=== PATIENT | male | born 1950 | race African-American/Black ===

== ENCOUNTER 2018-11-02 14:05 | Inpatient (IN) | payer MEDICARE, OTHER ==
[~2018-11-02] VITALS: Ht 182.9 cm; Wt 98.8 kg
[2018-11-02] MEDS ORDERED: ALTEPLASE 1 MG/ML ONE (14:07)
--- NOTE | 2018-11-02 14:10 | NUR ---
Onset of symptoms (LUE/LLE/slurred speech) at 1330 EMS alert pre-hospital stroke alert at 1350 Pre-hospital FSBS 97, 98f, 132/80, 65, 15 100% Arrived at 1404 Weight obtained via bedscale at 1405 109[address] scan at 1406 Patient noted to moving left arm/leg at 1407 CT head w/o: 1410 CTA head/neck 1417 Labs draw by EMS at 1400-sent at 1431 (delay as patient labels unavailable) Neurologist responded via phone at 1433 (Dr. Gomes), paged at 1350 & 1421
--- NOTE | 2018-11-02 14:15 | NUR ---
THIS RN BACK FROM LUNCH BREAK. ASSUMED CARE OF PATIENT FROM [facility] IN CT DEPARTMENT.
--- NOTE | 2018-11-02 14:24 | NUR ---
PG CODE NEURO @[id number] PG NEURO @[id number]
[2018-11-02] MEDS ORDERED: OMNIPAQUE 350 MG/ML, 100ML BOTTLE ONE (14:33)
--- NOTE | 2018-11-02 14:33 | NUR ---
Dr. nicole paged overhead throughout entire hospital at 1332 yet to eval patient
[2018-11-02 14:38] LABS: BASOPHILS # (AUTO) 0.04 x10^3/uL (0-0.1); BASOPHILS % (AUTO) 1 % (0-1); EOSINOPHILS # (AUTO) 0.06 x10^3/uL (0-0.4); EOSINOPHILS % (AUTO) 2 % (1-7); LYMPHOCYTES # (AUTO) 1.55 x10^3/uL (1-3.4); LYMPHOCYTES % (AUTO) 37 % (22-44); MD NO; MEAN CORPUSCULAR HEMOGLOBIN 30.6 pg (27.5-34.5); MEAN CORPUSCULAR HGB CONC 32.8 g/dL (33.2-36.2); MEAN CORPUSCULAR VOLUME 93.3 fL (81-97); MEAN PLATELET VOLUME 9.5 fL (7.4-10.4); MONOCYTES # (AUTO) 0.56 x10^3/uL (0.2-0.8); MONOCYTES % (AUTO) 14 % (2-9); NEUTROPHILS # (AUTO) 1.94 x10^3/uL (1.8-6.8); NEUTROPHILS % (AUTO) 47 % (42-75); PLATELET COUNT 169 x10^3/uL (130-400); RED BLOOD COUNT 4.33 x10^6/uL (4.38-5.82); RED CELL DISTRIBUTION WIDTH 14.4 % (9.4-14.8)
[2018-11-02 14:49] LABS: INTERNATIONAL NORMALIZED RATIO 1.49 (0.93-1.1); PROTHROMBIN TIME 15.4 Seconds (9.6-11.5)
[2018-11-02] MEDS ORDERED: PROCHLORPERAZINE 5 MG/ML, 2ML ONE (14:58)
[2018-11-02] MEDS ORDERED: CLOPIDOGREL 75 MG TABLET ONE (14:58)
[2018-11-02] MEDS ORDERED: DIPHENHYDRAMINE 50 MG/ML, 1ML ONE (14:58)
[2018-11-02] MEDS ORDERED: ASPIRIN 81 MG TABLET CHEW ONE (14:59)
[2018-11-02] MEDS ORDERED: ASPIRIN 81 MG TABLET CHEW PO ONE (15:00)
[2018-11-02] MEDS ORDERED: CLOPIDOGREL 300 MG TABLET PO ONE (15:00)
[2018-11-02] MEDS ORDERED: DIPHENHYDRAMINE 50 MG/ML, 1ML IV ONE (15:00)
[2018-11-02] MEDS ORDERED: PLEASE ENTER HEIGHT AND WEIGHT MC SCH (15:00)
[2018-11-02] MEDS ORDERED: PROCHLORPERAZINE 5 MG/ML, 2ML IVPush ONE (15:00)
[2018-11-02] MEDS ORDERED: EZET10TA70 PO (15:13)
--- NOTE | 2018-11-02 15:20 | NUR ---
PT TO MRI AT THIS TIME.
[2018-11-02] MEDS ORDERED: LEVO175T5 PO (15:28)
[2018-11-02] MEDS ORDERED: ALLO100T30 PO (15:28)
[2018-11-02] MEDS ORDERED: SILD100T PO (15:28)
--- NOTE | 2018-11-02 15:44 | NUR ---
SBAR TELEPHONE HAND-OFF REPORT GIVEN TO [facility].
--- NOTE | 2018-11-02 16:10 | NUR ---
DR. HELLER, NEUROLOGIST, AT BEDSIDE.
[2018-11-02 16:46] VITALS: BP 135/90
[2018-11-02] MEDS ORDERED: ACETAMINOPHEN 650 MG/20.3 ML UDC PO PRN (17:00)
[2018-11-02] MEDS ORDERED: ONDANSETRON 4 MG TABLET PO PRN (17:00)
[2018-11-02] MEDS ORDERED: LABETALOL 5 MG/ML SYR. (IV ONLY) IV PRN (17:00)
[2018-11-02] MEDS ORDERED: MAGNESIUM SULFATE PMX 2GM/50ML 50 ML IV ONE (18:00)
[2018-11-02 18:36] VITALS: BP 132/93
[2018-11-02] MEDS ORDERED: DOCUSATE 100 MG CAPSULE PO PRN (21:00)
[2018-11-02] MEDS: ATORVASTATIN 80 MG TABLET PO SCH (21:30)
[2018-11-03 00:25] VITALS: BP 133/95
[2018-11-03 04:47] VITALS: BP 127/85
[2018-11-03 05:08] LABS: ANION GAP 6 mmol/L (5-15); CHLORIDE 110 mmol/L (98-107)
[2018-11-03 05:11] LABS: CHOL/HDL RATIO 4.8; CHOLESTEROL, TOTAL 149 mg/dL (140-239); CREATININE 1.92 mg/dL (0.7-1.3); HDL CHOL % 21 % (26-37); HDL CHOLESTEROL (DIRECT) 31 mg/dL (40-60); LDL CHOLESTEROL,CALCULATED 99 mg/dL (54-169); LDL/HDL RATIO 3.2 (0.5-3.0); TRIGLYCERIDES 94 mg/dL (50-200); VLDL CHOLESTEROL 19 mg/dL (0-25)
[2018-11-03 05:12] LABS: BASOPHILS # (AUTO) 0.02 x10^3/uL (0-0.1); BASOPHILS % (AUTO) 1 % (0-1); EOSINOPHILS # (AUTO) 0.09 x10^3/uL (0-0.4); EOSINOPHILS % (AUTO) 3 % (1-7); LYMPHOCYTES # (AUTO) 1.14 x10^3/uL (1-3.4); LYMPHOCYTES % (AUTO) 35 % (22-44); MD NO; MEAN CORPUSCULAR HEMOGLOBIN 30.5 pg (27.5-34.5); MEAN CORPUSCULAR HGB CONC 32.9 g/dL (33.2-36.2); MEAN CORPUSCULAR VOLUME 92.7 fL (81-97); MEAN PLATELET VOLUME 8.9 fL (7.4-10.4); MONOCYTES # (AUTO) 0.45 x10^3/uL (0.2-0.8); MONOCYTES % (AUTO) 14 % (2-9); NEUTROPHILS # (AUTO) 1.55 x10^3/uL (1.8-6.8); NEUTROPHILS % (AUTO) 48 % (42-75); PLATELET COUNT 158 x10^3/uL (130-400); RED BLOOD COUNT 4.27 x10^6/uL (4.38-5.82); RED CELL DISTRIBUTION WIDTH 14.8 % (9.4-14.8)
[2018-11-03] MEDS: LEVOTHYROXINE 175 MCG TABLET PO SCH (05:30)
[2018-11-03] MEDS ORDERED: ASPIRIN 325 MG TABLET PO SCH (06:00)
[2018-11-03 07:35] VITALS: BP 119/82
[2018-11-03] MEDS ORDERED: CLOPIDOGREL 75 MG TABLET PO SCH (09:00)
[2018-11-03] MEDS: ALLOPURINOL 100 MG TABLET PO SCH (09:35)
[2018-11-03] MEDS: EZETIMIBE 10 MG TABLET PO SCH (09:36)
[2018-11-03 13:25] VITALS: BP 108/65
[2018-11-03 18:30] VITALS: BP 121/75
[2018-11-03 19:28] LABS: BASOPHILS # (AUTO) 0.02 x10^3/uL (0-0.1); BASOPHILS % (AUTO) 1 % (0-1); EOSINOPHILS % (AUTO) 3 % (1-7); LYMPHOCYTES # (AUTO) 0.94 x10^3/uL (1-3.4); LYMPHOCYTES % (AUTO) 27 % (22-44); MD NO; MEAN CORPUSCULAR HEMOGLOBIN 30.8 pg (27.5-34.5); MEAN CORPUSCULAR HGB CONC 33.3 g/dL (33.2-36.2); MEAN CORPUSCULAR VOLUME 92.5 fL (81-97); MEAN PLATELET VOLUME 9.3 fL (7.4-10.4); MONOCYTES # (AUTO) 0.43 x10^3/uL (0.2-0.8); MONOCYTES % (AUTO) 12 % (2-9); NEUTROPHILS # (AUTO) 2.01 x10^3/uL (1.8-6.8); NEUTROPHILS % (AUTO) 57 % (42-75); PLATELET COUNT 155 x10^3/uL (130-400); RED BLOOD COUNT 4.23 x10^6/uL (4.38-5.82); RED CELL DISTRIBUTION WIDTH 14.7 % (9.4-14.8)
[2018-11-03] MEDS ORDERED: HEPARIN wt. based STROKE protocol MC PRN (19:30)
[2018-11-03] MEDS: ATORVASTATIN 80 MG TABLET PO SCH (20:02)
[2018-11-03] MEDS: HEPARIN 25,000 UNITS/500ML PMX 500 ML IV PRN (20:04)
[2018-11-04 00:56] VITALS: BP 120/81
[2018-11-04] MEDS: LEVOTHYROXINE 175 MCG TABLET PO SCH (05:41)
[2018-11-04 06:19] LABS: ANION GAP 8 mmol/L (5-15); CALCIUM 8.3 mg/dL (8.5-10.1); CHLORIDE 109 mmol/L (98-107)
[2018-11-04 06:25] LABS: CREATININE 1.68 mg/dL (0.7-1.3)
[2018-11-04 07:35] VITALS: BP 118/76
[2018-11-04] MEDS: ALLOPURINOL 100 MG TABLET PO SCH (08:25)
[2018-11-04] MEDS: EZETIMIBE 10 MG TABLET PO SCH (08:26)
[2018-11-04] MEDS: SODIUM CHLORIDE 0.9% 1,000 ML IV SCH ×3 (10:32→19:38)
[2018-11-04 12:28] VITALS: BP_SYST 135; BP_DIAS 100; BP_DIAS 80
[2018-11-04] MEDS: HEPARIN 25,000 UNITS/500ML PMX 500 ML IV PRN (19:26)
[2018-11-04 20:05] VITALS: BP 115/74
[2018-11-04] MEDS: ATORVASTATIN 80 MG TABLET PO SCH (21:15)
[2018-11-05 01:38] VITALS: BP 123/81
[2018-11-05] MEDS: LEVOTHYROXINE 175 MCG TABLET PO SCH (05:18)
[2018-11-05 05:27] LABS: ANION GAP 9 mmol/L (5-15); CALCIUM 8.4 mg/dL (8.5-10.1); CHLORIDE 109 mmol/L (98-107); CREATININE 1.59 mg/dL (0.7-1.3)
[2018-11-05 07:06] VITALS: BP 130/85
[2018-11-05] MEDS: EZETIMIBE 10 MG TABLET PO SCH (08:38)
[2018-11-05] MEDS: ALLOPURINOL 100 MG TABLET PO SCH (08:38)
[2018-11-05] MEDS: SODIUM CHLORIDE 0.9% 1,000 ML IV SCH ×5 (12:55→19:53)
[2018-11-05] MEDS: HEPARIN 25,000 UNITS/500ML PMX 500 ML IV PRN (13:07)
[2018-11-05 14:27] VITALS: BP 131/87
[2018-11-05] MEDS ORDERED: TICAGRELOR 90 MG TABLET ONE (15:52)
[2018-11-05] MEDS ORDERED: NITROGLYCERIN 5 MG/ML, 10ML ONE (15:52)
[2018-11-05] MEDS ORDERED: BIVALIRUDIN 250 MG ONE (15:52)
[2018-11-05] MEDS ORDERED: VERAPAMIL 2.5 MG/ML, 2ML ONE (15:52)
[2018-11-05] MEDS ORDERED: FENTANYL PF 100 MCG/2ML ONE (15:52)
[2018-11-05] MEDS ORDERED: HEPARIN 1,000 UNITS/ML, 10ML ONE (15:52)
[2018-11-05] MEDS ORDERED: MIDAZOLAM 1 MG/ML, 5ML ONE (15:52)
[2018-11-05] MEDS ORDERED: LIDOCAINE-MPF 1%, 5ML ONE (15:54)
[2018-11-05] MEDS: ATORVASTATIN 80 MG TABLET PO SCH (19:51)
[2018-11-05 20:04] VITALS: BP 124/85
[2018-11-06 01:31] VITALS: BP 111/83
[2018-11-06 04:36] LABS: ANION GAP 7 mmol/L (5-15); CALCIUM 8.3 mg/dL (8.5-10.1); CHLORIDE 109 mmol/L (98-107)
[2018-11-06 04:37] LABS: CREATININE 1.77 mg/dL (0.7-1.3)
[2018-11-06] MEDS: LEVOTHYROXINE 175 MCG TABLET PO SCH (04:57)
[2018-11-06 07:15] VITALS: BP 134/87
[2018-11-06] MEDS: EZETIMIBE 10 MG TABLET PO SCH (08:47)
[2018-11-06] MEDS: ALLOPURINOL 100 MG TABLET PO SCH (08:47)
[2018-11-06] MEDS: SODIUM CHLORIDE 0.9% 1,000 ML IV SCH (09:39)
[2018-11-06 12:00] VITALS: BP 120/80
[2018-11-06] MEDS ORDERED: LOSA25TA2 PO (13:03)
[2018-11-06] MEDS ORDERED: ATOR-2 PO (13:03)
[2018-11-06] MEDS ORDERED: APIX5TAB PO (13:03)
[2018-11-06] MEDS ORDERED: METO25TA91 PO (13:03)
[2018-11-06] MEDS ORDERED: NICO-485 TD (13:09)
[2018-11-06] MEDS ORDERED: METOPROLOL SUCCINATE 25 MG TAB.ER.24H PO SCH (18:00)
== END 2018-11-06 15:45 | disposition home or self-care (01) | DRG 64 ==
LOC: ED 15:12 → EDIP 15:13 → ED 15:33 → 4WST 16:42 → 5SO 11-04 12:29 → DCLOUNGE 11-06 15:07 → UNDODISIN 11-06 15:07
PROVIDERS: ADMIT Internal Medicine; ATTEND Internal Medicine
PROC: 4A023N7 Measurement of Cardiac Sampling and Pressure, Left Heart, Percutaneous Approach (ICD-10-PCS; principal; 2018-11-05)
PROC: B2151ZZ Fluoroscopy of Left Heart using Low Osmolar Contrast (ICD-10-PCS; 2018-11-05)
PROC: B2111ZZ Fluoroscopy of Multiple Coronary Arteries using Low Osmolar Contrast (ICD-10-PCS; 2018-11-05)
DX: I63.89 Other cerebral infarction (principal); I21.4 Non-ST elevation (NSTEMI) myocardial infarction; G45.9 Transient cerebral ischemic attack, unspecified; G81.94 Hemiplegia, unspecified affecting left nondominant side; I13.0 Hypertensive heart and chronic kidney disease with heart failure and stage 1 through stage 4 chronic kidney disease, or unspecified chronic kidney disease; I42.9 Cardiomyopathy, unspecified; I50.20 Unspecified systolic (congestive) heart failure; D64.9 Anemia, unspecified; E78.5 Hyperlipidemia, unspecified; E89.0 Postprocedural hypothyroidism; F17.210 Nicotine dependence, cigarettes, uncomplicated; I34.0 Nonrheumatic mitral (valve) insufficiency; I48.0 Paroxysmal atrial fibrillation; I77.1 Stricture of artery; M1A.9XX0 Chronic gout, unspecified, without tophus (tophi); N18.3 Chronic kidney disease, stage 3 (moderate); R29.706 NIHSS score 6; Z79.02 Long term (current) use of antithrombotics/antiplatelets; Z79.899 Other long term (current) drug therapy; Z83.2 Family history of diseases of the blood and blood-forming organs and certain disorders involving the immune mechanism
CPT/HCPCS: 36415; 70450; 70496; 70498; 70551; 80047; 80048; 80061; 82962; 83735; 83880; 84100; 84443; 84484; 85025; 85520; 85610; 85730; 93005; 93306; 93458; 99156; 99285; C1769; C1894; G0378; J0583; J1644; J2250; J3010; Q9967; 92523-GN; J0780; J3475; J7030

== ENCOUNTER 2019-02-22 13:13 | Emergency (ER) | payer MEDICARE ==
[~2019-02-22] VITALS: Ht 182.9 cm; Wt 109.0 kg
[~2019-02-22 13:13] MED LIST: ACET325T26 PO; ALLO100T30 PO; APIX5TAB PO; ASPI81TA45 PO; ATOR-2 PO; BISA5TAB5 PO; CARV3.1212 PO; DOCU100C33 PO; EZET10TA70 PO; FURO40TA6 PO; LEVO175T5 PO; LEVO200T PO; LOSA25TA2 PO; LOSA25TA25 PO; METO25TA91 PO; NICO-485 TD; ONDA4TAB7 PO; SILD100T PO; TRAM50TA2 PO; WARF-36 PO-COUM
[2019-02-22] MEDS ORDERED: SILVER NITRATE STICK TP ONE (13:17)
[2019-02-22] MEDS ORDERED: PHENYLEPHRINE NASAL 1%, 15ML SPRAY ONE (13:17)
[2019-02-22] MEDS ORDERED: LIDOCAINE 1%-EPI 1:100K, 20ML ONE (13:17)
[2019-02-22] MEDS ORDERED: NEOSPORIN OINT. PKT 1 PACKET ONE (13:18)
--- NOTE | 2019-02-22 13:28 | NUR ---
PT BIB [facility] FROM [facility] FOR EPISTAXIS X30 MIN. PER EMS, LARGE AMT BLOOD IN PT'S BATHROOM. PT WAS PICKING NOSE DENIES FALL. COUMADIN 6.2 YESTERDAY, 3.5 TODAY AFTER BEING D/C'D YEST. DENIES DIZZINESS. NOSECLAMP IN PLACE FROM EMS. IN ROOM FOR EVAL. PT A&OX3 GCS 15, DENIES PAIN. FALL BONILLA IN REACH. FALL PRECS IN PLACE.
[2019-02-22] MEDS ORDERED: TRANEXAMIC ACID 100 MG/ML, 10ML ONE (13:44)
[2019-02-22] MEDS ORDERED: TRANEXAMIC ACID 100 MG/ML, 10ML TP ONE (14:00)
[2019-02-22] MEDS ORDERED: DIGO125T PO (14:12)
[2019-02-22] MEDS ORDERED: TAMS-11 PO (14:12)
--- NOTE | 2019-02-22 14:21 | NUR ---
MD AT BEDSIDE, APPLIED TXA, PACKED NOSE. SUTURES IN R NECK FROM DIALYSIS CATH REMOVED. PT RESTING COMFORTABLY, BLEEDING STOPPED, CALL BONILLA IN REACH.
[2019-02-22 14:26] LABS: INTERNATIONAL NORMALIZED RATIO 2.99 (0.93-1.1); PROTHROMBIN TIME 30.1 Seconds (9.6-11.5)
--- NOTE | 2019-02-22 15:27 | NUR ---
VSS. RIDE BOOKED BACK TO SN[facility] PER THROUGHPUT RN. NOSEBLEED STOPPED. PT RESTING, CALL BONILLA IN REACH.
[2019-02-22 16:00] VITALS: BP 140/89
== END 2019-02-22 16:39 | disposition short-term general hospital (02) ==
LOC: ED 15:08
DX: R04.0 Epistaxis (principal); I50.9 Heart failure, unspecified; E78.5 Hyperlipidemia, unspecified; I48.91 Unspecified atrial fibrillation; N18.9 Chronic kidney disease, unspecified; M10.9 Gout, unspecified; Z86.73 Personal history of transient ischemic attack (TIA), and cerebral infarction without residual deficits; Z87.891 Personal history of nicotine dependence
CPT/HCPCS: 30901; 36415; 85610; 99285

== ENCOUNTER → 2019-03-07 | Outpatient (CLI) | payer MEDICARE ==
[~2019-03-07] MED LIST changes: +DIGO125T PO; +TAMS-11 PO
== END | disposition home or self-care (01) ==
LOC: WOUND 09:22
PROVIDERS: ATTEND Podiatrist Foot & Ankle Surgery
DX: E11.621 Type 2 diabetes mellitus with foot ulcer (principal); L89.896 Pressure-induced deep tissue damage of other site; L97.511 Non-pressure chronic ulcer of other part of right foot limited to breakdown of skin; E03.9 Hypothyroidism, unspecified; E78.5 Hyperlipidemia, unspecified; L84 Corns and callosities; M10.9 Gout, unspecified; E11.40 Type 2 diabetes mellitus with diabetic neuropathy, unspecified; I48.20 Chronic atrial fibrillation, unspecified; D63.1 Anemia in chronic kidney disease; I48.92 Unspecified atrial flutter; I13.0 Hypertensive heart and chronic kidney disease with heart failure and stage 1 through stage 4 chronic kidney disease, or unspecified chronic kidney disease; E11.22 Type 2 diabetes mellitus with diabetic chronic kidney disease; N18.3 Chronic kidney disease, stage 3 (moderate); I50.42 Chronic combined systolic (congestive) and diastolic (congestive) heart failure; Z99.2 Dependence on renal dialysis; Z87.891 Personal history of nicotine dependence; Z79.01 Long term (current) use of anticoagulants; Z86.73 Personal history of transient ischemic attack (TIA), and cerebral infarction without residual deficits
CPT/HCPCS: 97597; G0463

== ENCOUNTER → 2019-03-14 | Outpatient (CLI) | payer MEDICARE | END | disposition home or self-care (01) | LOC: WOUND 09:57 | PROVIDERS: ATTEND Podiatrist Foot & Ankle Surgery | DX: E11.621 Type 2 diabetes mellitus with foot ulcer (principal); L89.896 Pressure-induced deep tissue damage of other site; L97.511 Non-pressure chronic ulcer of other part of right foot limited to breakdown of skin; E03.9 Hypothyroidism, unspecified; E78.5 Hyperlipidemia, unspecified; L84 Corns and callosities; M10.9 Gout, unspecified; E11.40 Type 2 diabetes mellitus with diabetic neuropathy, unspecified; I48.20 Chronic atrial fibrillation, unspecified; D63.1 Anemia in chronic kidney disease; I48.92 Unspecified atrial flutter; I13.0 Hypertensive heart and chronic kidney disease with heart failure and stage 1 through stage 4 chronic kidney disease, or unspecified chronic kidney disease; E11.22 Type 2 diabetes mellitus with diabetic chronic kidney disease; N18.3 Chronic kidney disease, stage 3 (moderate); I50.42 Chronic combined systolic (congestive) and diastolic (congestive) heart failure; Z99.2 Dependence on renal dialysis; Z87.891 Personal history of nicotine dependence; Z79.01 Long term (current) use of anticoagulants; Z86.73 Personal history of transient ischemic attack (TIA), and cerebral infarction without residual deficits | CPT/HCPCS: 11042 ==

== ENCOUNTER → 2019-03-21 | Outpatient (CLI) | payer MEDICARE | END | disposition home or self-care (01) | LOC: WOUND 13:00 | PROVIDERS: ATTEND Podiatrist Foot & Ankle Surgery | DX: E11.621 Type 2 diabetes mellitus with foot ulcer (principal); L89.896 Pressure-induced deep tissue damage of other site; L97.512 Non-pressure chronic ulcer of other part of right foot with fat layer exposed; E11.40 Type 2 diabetes mellitus with diabetic neuropathy, unspecified; E03.9 Hypothyroidism, unspecified; E78.5 Hyperlipidemia, unspecified; M10.9 Gout, unspecified; I48.20 Chronic atrial fibrillation, unspecified; E11.22 Type 2 diabetes mellitus with diabetic chronic kidney disease; I13.0 Hypertensive heart and chronic kidney disease with heart failure and stage 1 through stage 4 chronic kidney disease, or unspecified chronic kidney disease; I50.42 Chronic combined systolic (congestive) and diastolic (congestive) heart failure; N18.9 Chronic kidney disease, unspecified; D63.1 Anemia in chronic kidney disease; F17.210 Nicotine dependence, cigarettes, uncomplicated; Z79.82 Long term (current) use of aspirin; Z99.2 Dependence on renal dialysis | CPT/HCPCS: 11042 ==

== ENCOUNTER 2019-04-18 10:00 | Outpatient (CLI) | payer MEDICARE | END 2019-04-18 23:59 | disposition home or self-care (01) | LOC: WOUND 10:00 | PROVIDERS: ATTEND Podiatrist Foot & Ankle Surgery | DX: E11.621 Type 2 diabetes mellitus with foot ulcer (principal); L89.896 Pressure-induced deep tissue damage of other site; L97.511 Non-pressure chronic ulcer of other part of right foot limited to breakdown of skin; E03.9 Hypothyroidism, unspecified; E78.5 Hyperlipidemia, unspecified; L84 Corns and callosities; M10.9 Gout, unspecified; E11.40 Type 2 diabetes mellitus with diabetic neuropathy, unspecified; I48.20 Chronic atrial fibrillation, unspecified; D63.1 Anemia in chronic kidney disease; I48.92 Unspecified atrial flutter; I13.0 Hypertensive heart and chronic kidney disease with heart failure and stage 1 through stage 4 chronic kidney disease, or unspecified chronic kidney disease; E11.22 Type 2 diabetes mellitus with diabetic chronic kidney disease; N18.3 Chronic kidney disease, stage 3 (moderate); I50.42 Chronic combined systolic (congestive) and diastolic (congestive) heart failure; Z99.2 Dependence on renal dialysis; Z87.891 Personal history of nicotine dependence; Z79.01 Long term (current) use of anticoagulants; Z86.73 Personal history of transient ischemic attack (TIA), and cerebral infarction without residual deficits | CPT/HCPCS: 97597 ==

== ENCOUNTER 2019-05-09 11:05 | Outpatient (CLI) | payer MEDICARE ==
[~2019-05-09 11:05] MED LIST changes: -DIGO125T PO; +DIGO125T85 PO
== END 2019-05-09 23:59 | disposition home or self-care (01) ==
LOC: WOUND 11:05
PROVIDERS: ATTEND Podiatrist Foot & Ankle Surgery
DX: E11.621 Type 2 diabetes mellitus with foot ulcer (principal); L89.896 Pressure-induced deep tissue damage of other site; L97.512 Non-pressure chronic ulcer of other part of right foot with fat layer exposed; E03.9 Hypothyroidism, unspecified; E78.5 Hyperlipidemia, unspecified; L84 Corns and callosities; M10.9 Gout, unspecified; E11.40 Type 2 diabetes mellitus with diabetic neuropathy, unspecified; I48.20 Chronic atrial fibrillation, unspecified; D63.1 Anemia in chronic kidney disease; I48.92 Unspecified atrial flutter; I13.0 Hypertensive heart and chronic kidney disease with heart failure and stage 1 through stage 4 chronic kidney disease, or unspecified chronic kidney disease; E11.22 Type 2 diabetes mellitus with diabetic chronic kidney disease; N18.3 Chronic kidney disease, stage 3 (moderate); I50.42 Chronic combined systolic (congestive) and diastolic (congestive) heart failure; Z99.2 Dependence on renal dialysis; Z87.891 Personal history of nicotine dependence; Z79.01 Long term (current) use of anticoagulants; Z86.73 Personal history of transient ischemic attack (TIA), and cerebral infarction without residual deficits
CPT/HCPCS: G0463

== ENCOUNTER → 2019-06-18 | Outpatient (CLI) | payer MEDICARE | END | disposition home or self-care (01) | LOC: CFH 07:01 | PROVIDERS: ATTEND Internal Medicine Cardiovascular Disease | DX: I08.3 Combined rheumatic disorders of mitral, aortic and tricuspid valves (principal); I11.9 Hypertensive heart disease without heart failure; I48.0 Paroxysmal atrial fibrillation | CPT/HCPCS: 93306; 93356 ==

== ENCOUNTER 2020-08-27 10:53 | Day surgery (SDC) | payer MEDICARE ==
[2020-08-24 11:37] LABS: ALBUMIN 3.7 g/dL (3.4-5.0); CALCIUM 9.2 mg/dL (8.5-10.1)
[2020-08-24 11:40] LABS: ALANINE AMINOTRANSFERASE 42 U/L (12-78); ALKALINE PHOSPHATASE 106 U/L (45-117); BILIRUBIN,TOTAL 0.4 mg/dL (0.2-1.0); CREATININE 1.75 mg/dL (0.7-1.3)
[2020-08-24 11:48] LABS: CHLORIDE 111 mmol/L (98-107)
[2020-08-24 11:49] LABS: ANION GAP 3 mmol/L (5-15)
[~2020-08-27] VITALS: Ht 182.9 cm; Wt 92.7 kg
[~2020-08-27 10:53] MED LIST changes: +CARV3.122 PO; +LEVO200T5 PO; +WARF4TAB65 PO
[2020-08-27] MEDS ORDERED: CHLORHEXIDINE 15 ML UDC PO ONE (11:30)
[2020-08-27] MEDS ORDERED: LACTATED RINGERS 1,000 ML IV SCH (11:30)
[2020-08-27] MEDS ORDERED: PROPOFOL 50 ML ONE (13:08)
[2020-08-27] MEDS ORDERED: PROPOFOL 10 MG/ML, 20ML ONE (13:08)
[2020-08-27] MEDS ORDERED: ONDANSETRON 2MG/ML, 2ML IVPush PRN (13:30)
[2020-08-27] MEDS ORDERED: DIPHENHYDRAMINE 50 MG/ML, 1ML IVPush PRN (13:30)
[2020-08-27] MEDS ORDERED: DIAZEPAM 5 MG/ML, 2ML IVPush PRN (13:30)
[2020-08-27] MEDS ORDERED: FENTANYL PF 100 MCG/2ML IV PRN (13:30)
[2020-08-27] MEDS ORDERED: EPHEDRINE 50 MG/ML, 1ML IVPush PRN (13:30)
[2020-08-27] MEDS ORDERED: PROMETHAZINE 25 MG/ML, 1ML IVPush PRN (13:30)
[2020-08-27] MEDS ORDERED: OXYcodone 5 MG/5 ML ORAL.SOL UDC PO PRN (13:30)
[2020-08-27] MEDS ORDERED: MEPERIDINE/PF 25MG/0.5ML IVPush PRN (13:30)
[2020-08-27] MEDS ORDERED: EPHEDRINE 50 MG/ML, 1ML IM PRN (13:30)
[2020-08-27] MEDS ORDERED: morphine SULFATE 10 MG/ML, 1ML IVPush PRN (13:30)
[2020-08-27] MEDS ORDERED: LABETALOL 5MG/ML, 20ML ONE (15:25)
[2020-08-27 15:30] VITALS: BP 174/115
[2020-08-27] MEDS: LABETALOL 5MG/ML, 20ML IV PRN ×2 (15:30→15:48)
[2020-08-27 15:40] VITALS: BP 171/99
[2020-08-27 16:19] VITALS: BP 136/88
== END 2020-08-27 16:25 | disposition home or self-care (01) ==
LOC: OUT 10:53
PROVIDERS: ATTEND Internal Medicine Gastroenterology
DX: R19.5 Other fecal abnormalities (principal); K63.5 Polyp of colon; K57.30 Diverticulosis of large intestine without perforation or abscess without bleeding; K63.89 Other specified diseases of intestine; K64.1 Second degree hemorrhoids; I10 Essential (primary) hypertension; I48.91 Unspecified atrial fibrillation; E78.00 Pure hypercholesterolemia, unspecified; J45.909 Unspecified asthma, uncomplicated; E03.9 Hypothyroidism, unspecified; F12.90 Cannabis use, unspecified, uncomplicated; Z20.822 Contact with and (suspected) exposure to COVID-19; Z79.899 Other long term (current) drug therapy; Z79.01 Long term (current) use of anticoagulants; Z79.890 Hormone replacement therapy; Z87.891 Personal history of nicotine dependence; Z98.890 Other specified postprocedural states
CPT/HCPCS: 36415; 45380; 45385; 80053; 88305; 93005; J2704; J7120; U0003; U0005

== ENCOUNTER → 2020-10-29 | Outpatient (CLI) | payer MEDICARE | END | disposition home or self-care (01) | LOC: CVU 09:04 | PROVIDERS: ATTEND Internal Medicine Cardiovascular Disease | DX: I35.8 Other nonrheumatic aortic valve disorders (principal); R74.8 Abnormal levels of other serum enzymes; I42.8 Other cardiomyopathies; I11.9 Hypertensive heart disease without heart failure; I48.91 Unspecified atrial fibrillation; Z86.010 Personal history of colon polyps; Z95.2 Presence of prosthetic heart valve | CPT/HCPCS: 76700; 93306; 93356 ==